=== PATIENT | male | born 1945 | race African-American/Black ===

== ENCOUNTER 2021-05-05 15:56 | Emergency (ER) | payer MEDICARE ==
[~2021-05-05 15:56] MED LIST: Iopamidol-370 76% 500 ML 1 ML ONE
[2021-05-05 16:41] LABS: #Basophils 0.1 thou/uL (0.0-0.2); #Lymphocytes 1.6 thou/uL (1.20-3.40); %Basophils 0.5 % (0.0-1.0); %Eosinophils 0.4 % (0.0-10.0); %Lymphocytes 16.5 % (21.0-51.0); %Monocytes 10.3 % (0.0-10.0); %Neutrophils 72.3 % (42.0-75.0); Hemoglobin 13.1 g/dL (14.0-18.0); Mean Corpuscular HGB CONC 31.7 g/dL (32.0-36.0); Mean Corpuscular Hemoglobin 29.9 pg (27.0-31.0); Mean Corpuscular Volume 94.2 fL (78.0-98.0); Mean Platelet Volume 8.5 fL (7.4-10.4); Platelet Count 244 thou/uL (130-400); RBC Distribution Width 11.9 % (11.5-14.5); Red Blood Cell (RBC) Count 4.37 mill/uL (4.70-6.10); White Blood Cell (WBC) Count 9.7 thou/uL (4.8-10.8)
[2021-05-05 16:59] LABS: ALT (SGPT) 66 U/L (8-55); AST (SGOT) 71 U/L (5-34); Albumin 3.6 g/dL (3.4-4.8); Alkaline Phosphatase 135 U/L (40-110); Anion Gap 14 mmol/L (10-20); BUN (Urea Nitrogen) 30 mg/dL (8.4-25.7); Bilirubin, Total 0.5 mg/dL (0.2-1.2); Calc. Creatinine Clearance 0 mL/min (70-130); Carbon Dioxide 24 mmol/L (23-31); Chloride 107 mmol/L (98-107); Globulin 4.6 g/dL (2.4-3.5); Glucose 127 mg/dL (83-110); Potassium 4.2 mmol/L (3.5-5.1); Protein, Total 8.2 g/dL (5.8-8.1); Sodium 141 mmol/L (136-145)
[2021-05-05 17:32] LABS: CK (CPK) 153 U/L (30-200); Lipase 48 U/L (8-78)
[2021-05-05 18:13] LABS: Bilirubin Negative (Negative); Blood, Urine Negative (Negative); Clarity Turbid (Clear); Glucose, Urine (Dipstick) Normal (Negative); Ketone, Urine Negative (Negative); Leukocyte Negative Leu/uL (Negative); Nitrite Negative (Negative); Protein, Urine (Dipstick) Negative (Neg-Trace); Specific Gravity, Urine 1.019 (1.002-1.036); Urobilinogen Normal mg/dL (Less than 2); pH, Urine 5.5 (5.0-9.0)
[2021-05-05 18:43] LABS: SARS-CoV-2 NAA Rapid Test DETECTED (NotDetected)
== END 2021-05-05 19:45 | disposition home or self-care (01) ==
LOC: ERS 15:56
DX: U07.1 COVID-19 (principal); I10 Essential (primary) hypertension; E78.5 Hyperlipidemia, unspecified; Z79.899 Other long term (current) drug therapy
CPT/HCPCS: 71045; 74177; 80053; 81003; 82550; 83690; 84484; 85025; 93005; U0002; 36415; Q9967

== ENCOUNTER 2022-04-15 09:06 | Outpatient (CLI) | payer MEDICARE | END 2022-04-15 09:07 | disposition home or self-care (01) | LOC: RAD 09:06 | PROVIDERS: ATTEND Internal Medicine Critical Care Medicine | DX: R06.00 Dyspnea, unspecified (principal) | CPT/HCPCS: 71046 ==

== ENCOUNTER 2023-05-11 12:56 | Outpatient (CLI) | payer MEDICARE | END 2023-05-11 12:57 | disposition home or self-care (01) | LOC: BICRAD 12:56 | PROVIDERS: ATTEND Nurse Practitioner Family | DX: M54.2 Cervicalgia (principal); M47.812 Spondylosis without myelopathy or radiculopathy, cervical region | CPT/HCPCS: 72040 ==

== ENCOUNTER 2023-09-21 20:09 | Inpatient (IN) | payer MEDICARE ==
[~2023-09-21 20:09] MED LIST changes: -Iopamidol-370 76% 500 ML 1 ML ONE; +Iopamidol-370 76% 500 ML MDV (1 ML CHARGE) ONE
[2023-09-21 20:48] LABS: #Monocytes 0.4 thou/uL (0.11-0.59); #Neutrophils 10.4 thou/uL (1.40-6.50); %Basophils 0.3 % (0.0-1.0); %Eosinophils 0.3 % (0.0-10.0); %Lymphocytes 7.1 % (21.0-51.0); %Monocytes 3.5 % (0.0-10.0); %Neutrophils 88.4 % (42.0-75.0); Hematocrit 41.7 % (42.0-52.0); Hemoglobin 13.6 g/dL (14.0-18.0); Mean Corpuscular HGB CONC 32.6 g/dL (32.0-36.0); Mean Corpuscular Hemoglobin 30.4 pg (27.0-31.0); Mean Corpuscular Volume 93.1 fl (78.0-98.0); Mean Platelet Volume 10.3 fL (7.4-10.4); Platelet Count 425 10x3/uL (130-400); Red Blood Cell (RBC) Count 4.48 mill/uL (4.70-6.10); White Blood Cell (WBC) Count 11.8 10x3/uL (4.8-10.8)
[2023-09-21 21:06] LABS: Actual Bicarbonate (HCO3a) 26.6 mEq/L (22-28); Analyzer IN Cardio ER; CO2 Tension 46.2 mmHg (35.0-45.0); Carboxyhemoglobin (COHb) 0.6 gm% (0.0-3.0); Hematocrit-ABG 37 % (42.0-52.0); Hemoglobin (Hb) 12.7 g/dL (14.0-18.0); Potassium - ABG Lab 4.82 mmol/L (3.70-5.30); pH, Arterial 7.378 (7.35-7.45)
[2023-09-21 21:08] LABS: Puncture Site LRA
[2023-09-21 21:12] LABS: ALT (SGPT) 21 U/L (8-55); AST (SGOT) 30 U/L (5-34); Albumin 3.4 g/dL (3.4-4.8); Alkaline Phosphatase 115 U/L (40-110); Anion Gap 14 mmol/L (10-20); BUN (Urea Nitrogen) 35 mg/dL (8.4-25.7); Bilirubin, Total 0.4 mg/dL (0.2-1.2); Calc. Creatinine Clearance 0 mL/min (70-130); Calcium 9.5 mg/dL (7.8-10.44); Carbon Dioxide 25 mmol/L (23-31); Chloride 103 mmol/L (98-107); Estimated GFR 66; Globulin 5.9 g/dL (2.4-3.5); Glucose 124 mg/dL (83-110); Lipase 13 U/L (8-78); Potassium 5.6 mmol/L (3.5-5.1); Protein, Total 9.3 g/dL (5.8-8.1); Sodium 136 mmol/L (136-145)
[2023-09-21 21:13] LABS: Bilirubin Negative (Negative); Blood, Urine Negative (Negative); CAUTI Indications for Culture Alt mental st,lethar; Clarity Turbid (Clear); Glucose, Urine (Dipstick) Normal (Negative); Ketone, Urine Negative (Negative); Leukocyte 500 Leu/uL (Negative); Nitrite Negative (Negative); Protein, Urine (Dipstick) Negative (Neg-Trace); RBC/HPF 0-3 HPF (0-3); Specific Gravity, Urine 1.017 (1.002-1.036); Squamous Epithelial 0-3 HPF (0-3); Urobilinogen Normal mg/dL (Less than 2); WBC/HPF Greater than 50 HPF (0-3)
[2023-09-21 21:22] LABS: Troponin I Less than 0.010 ng/mL (< 0.028)
[2023-09-21 21:26] LABS: Bacteria/HPF 1+ HPF (None Seen)
[2023-09-21 21:27] LABS: Urine Culture Reflex Yes Yes
[2023-09-21 21:51] LABS: Influenza A by NAA Not Detected (NotDetected); Influenza B by NAA Not Detected (NotDetected); SARS-CoV-2 NAA Rapid Test Not Detected (NotDetected)
[2023-09-21] MEDS ORDERED: Dexamethasone 10 MG/ML VIAL ONE (21:56)
[2023-09-21] MEDS ORDERED: Albuterol 2.5 MG (3 mL) NEB ONE (22:03)
[2023-09-21] MEDS ORDERED: Ipratropium/Albuterol 3 ML NEB ONE (22:05)
[2023-09-21] MEDS ORDERED: Ondansetron ODT 4 MG TAB SL PRN (22:30)
[2023-09-21] MEDS ORDERED: Ondansetron PF 4 MG/2 ML Vial IVP PRN (22:30)
[2023-09-21] MEDS ORDERED: Magnesium 2 GM/50 ML BAG (IN WATER) ONE (22:51)
[2023-09-21 23:06] LABS: Potassium 5.3 mmol/L (3.5-5.1)
[2023-09-21] MEDS ORDERED: Sodium Chloride 0.9% 100 ML ONE (23:55)
[2023-09-21] MEDS ORDERED: cefTRIAXone (ROCEPHIN) 1 GM VIAL ONE (23:55)
[2023-09-21] MEDS: cefTRIAXone\\ROCEPHIN 1 GM in Sodium Chloride 0.9% 100 ML IVPB SCH (23:59)
[2023-09-22] MEDS ORDERED: Insulin Regular 300 UNITS/3 ML VIAL ONE (00:03)
[2023-09-22] MEDS ORDERED: LevoFLOXacin 750 mg/D5W 150 ml Premix Bag ONE (00:16)
[2023-09-22] MEDS: Insulin Regular 300 UNITS/3 ML VIAL IVP SCH (00:19)
[2023-09-22] MEDS: Dextrose 50% Abboject 50 ML SYRINGE SLOW IVP SCH (00:19)
[2023-09-22] MEDS: LevoFLOXacin 750 mg/D5W 750 MG in Premix 1 BAG IVPB SCH (00:22)
[2023-09-22] MEDS ORDERED: hydrALAZINE 20 MG/ML VIAL SLOW IVP PRN (01:37)
[2023-09-22] MEDS ORDERED: Ipratropium/Albuterol 3 ML NEB NEB PRN (01:54)
[2023-09-22 06:13] LABS: #Monocytes 0.1 thou/uL (0.11-0.59); #Neutrophils 6.4 thou/uL (1.40-6.50); %Basophils 0.1 % (0.0-1.0); %Lymphocytes 5.4 % (21.0-51.0); %Monocytes 1.3 % (0.0-10.0); %Neutrophils 93.1 % (42.0-75.0); Hematocrit 36.5 % (42.0-52.0); Hemoglobin 11.3 g/dL (14.0-18.0); Mean Corpuscular Hemoglobin 29.7 pg (27.0-31.0); Mean Corpuscular Volume 95.8 fl (78.0-98.0); Mean Platelet Volume 10.3 fL (7.4-10.4); Platelet Count 366 10x3/uL (130-400); Red Blood Cell (RBC) Count 3.81 mill/uL (4.70-6.10); White Blood Cell (WBC) Count 6.9 10x3/uL (4.8-10.8)
[2023-09-22 06:41] LABS: ALT (SGPT) 19 U/L (8-55); AST (SGOT) 23 U/L (5-34); Alkaline Phosphatase 97 U/L (40-110); Anion Gap 14 mmol/L (10-20); BUN (Urea Nitrogen) 37 mg/dL (8.4-25.7); Bilirubin, Total 0.2 mg/dL (0.2-1.2); Calc. Creatinine Clearance 39 mL/min (70-130); Carbon Dioxide 22 mmol/L (23-31); Chloride 103 mmol/L (98-107); Estimated GFR 65; Globulin 5.2 g/dL (2.4-3.5); Glucose 125 mg/dL (83-110); Potassium 4.6 mmol/L (3.5-5.1); Protein, Total 8.2 g/dL (5.8-8.1); Sodium 134 mmol/L (136-145)
[2023-09-22] MEDS: Ipratropium/Albuterol 3 ML NEB NEB SCH (06:51)
[2023-09-22] MEDS ORDERED: Dexamethasone 10 MG/ML VIAL SLOW IVP SCH (09:00)
[2023-09-22] MEDS: Enoxaparin 40 MG (0.4 mL) SYRINGE SC SCH (09:05)
[2023-09-22] MEDS: Multivit, Therapeutic 1 TAB PO SCH (09:05)
[2023-09-22] MEDS: Dicyclomine 10 MG CAP PO SCH (09:05)
[2023-09-22] MEDS: Doxycycline 100 MG in Sodium Chloride 0.9% 100 ML IVPB SCH (09:06)
[2023-09-22] MEDS: methylPREDNISolone Sod Succ 40 MG VIAL IVP SCH ×2 (09:06→16:01)
[2023-09-22 10:44] LABS: Anion Gap 13 mmol/L (10-20); BUN (Urea Nitrogen) 39 mg/dL (8.4-25.7); Calc. Creatinine Clearance 40 mL/min (70-130); Calcium 9.1 mg/dL (7.8-10.44); Carbon Dioxide 25 mmol/L (23-31); Chloride 103 mmol/L (98-107); Estimated GFR 66; Glucose 142 mg/dL (83-110); Potassium 5.1 mmol/L (3.5-5.1); Sodium 136 mmol/L (136-145)
[2023-09-22] MEDS: Cefepime 1 GM in Sodium Chloride 0.9% 100 ML IVPB SCH (15:55)
[2023-09-22] MEDS: Acetaminophen 325 MG TAB PO PRN (15:56)
[2023-09-22 16:51] LABS: Legionella Urinary Ag Negative (Negative); Strep pneumo Urine Ag NEGATIVE (NEGATIVE)
[2023-09-22] MEDS: Atorvastatin Calcium 20 MG TAB PO SCH (21:00)
[2023-09-22] MEDS: Ramipril 5 MG CAP PO SCH (21:00)
[2023-09-22] MEDS: Amitriptyline HCl 25 MG TAB PO SCH (21:00)
[2023-09-22] MEDS ORDERED: Polyethylene Glycol 3350 17 GM Packet PO PRN (22:16)
[2023-09-22] MEDS ORDERED: Senokot S 8.6-50 MG TAB PO PRN (22:16)
[2023-09-22] MEDS ORDERED: Docusate 100 MG CAP PO PRN (22:16)
[2023-09-23] MEDS: Methyl Salicylate/Menthol 85 GM TUBE TOP PRN (04:42)
[2023-09-23 06:21] LABS: #Monocytes 0.5 thou/uL (0.11-0.59); #Neutrophils 21.9 thou/uL (1.40-6.50); %Basophils 0.1 % (0.0-1.0); %Lymphocytes 4.1 % (21.0-51.0); %Monocytes 2.3 % (0.0-10.0); %Neutrophils 92.9 % (42.0-75.0); Hematocrit 36.4 % (42.0-52.0); Hemoglobin 11.3 g/dL (14.0-18.0); Mean Corpuscular Hemoglobin 29.9 pg (27.0-31.0); Mean Corpuscular Volume 96.3 fl (78.0-98.0); Mean Platelet Volume 10.5 fL (7.4-10.4); Platelet Count 307 10x3/uL (130-400); RBC Distribution Width 14.5 % (11.5-14.5); Red Blood Cell (RBC) Count 3.78 mill/uL (4.70-6.10); White Blood Cell (WBC) Count 23.6 10x3/uL (4.8-10.8)
[2023-09-23 06:45] LABS: Anion Gap 13 mmol/L (10-20); BUN (Urea Nitrogen) 45 mg/dL (8.4-25.7); CRP (Inflammatory) Less than 0.50 mg/dL (= or < 0.5); Calc. Creatinine Clearance 36 mL/min (70-130); Calcium 8.8 mg/dL (7.8-10.44); Carbon Dioxide 23 mmol/L (23-31); Chloride 104 mmol/L (98-107); Estimated GFR 59; Glucose 100 mg/dL (83-110); Sodium 134 mmol/L (136-145)
[2023-09-23 06:48] LABS: Critical Call Chemistry ICU.SCT@0648; Potassium 6.1 mmol/L (3.5-5.1)
[2023-09-23] MEDS: HYDROcodone/Acetaminophen 5/325 mg Tablet PO PRN (07:41)
[2023-09-23 07:59] LABS: #Monocytes 0.5 thou/uL (0.11-0.59); #Neutrophils 22.7 thou/uL (1.40-6.50); %Basophils 0.1 % (0.0-1.0); %Lymphocytes 3.6 % (21.0-51.0); %Monocytes 1.9 % (0.0-10.0); %Neutrophils 93.8 % (42.0-75.0); Hematocrit 36.8 % (42.0-52.0); Hemoglobin 11.5 g/dL (14.0-18.0); Mean Corpuscular HGB CONC 31.3 g/dL (32.0-36.0); Mean Corpuscular Hemoglobin 30.4 pg (27.0-31.0); Mean Corpuscular Volume 97.4 fl (78.0-98.0); Mean Platelet Volume 10.3 fL (7.4-10.4); Platelet Count 332 10x3/uL (130-400); RBC Distribution Width 14.4 % (11.5-14.5); Red Blood Cell (RBC) Count 3.78 mill/uL (4.70-6.10); White Blood Cell (WBC) Count 24.2 10x3/uL (4.8-10.8)
[2023-09-23 08:16] LABS: Anion Gap 14 mmol/L (10-20); BUN (Urea Nitrogen) 44 mg/dL (8.4-25.7); Calc. Creatinine Clearance 38 mL/min (70-130); Calcium 8.8 mg/dL (7.8-10.44); Carbon Dioxide 21 mmol/L (23-31); Chloride 106 mmol/L (98-107); Estimated GFR 60; Glucose 114 mg/dL (83-110); Sodium 134 mmol/L (136-145)
[2023-09-23 08:31] LABS: Critical Call Chemistry NUR.KD5 AT 0830; Potassium 6.5 mmol/L (3.5-5.1)
[2023-09-23 09:06] VITALS: BMI 16.1
[2023-09-23] MEDS: Calcium Gluc 4.6 MEQ/10 ML (100 MG/ML) SLOW IVP SCH (09:15)
[2023-09-23] MEDS: Dextrose 50% Abboject 50 ML SYRINGE SLOW IVP SCH (09:15)
[2023-09-23] MEDS: Insulin Regular 300 UNITS/3 ML VIAL IVP SCH (09:15)
[2023-09-23] MEDS: Sodium Chloride 0.9% 1,000 ML IV SCH (09:16)
[2023-09-23] MEDS: Sodium Polystyrene Sulfonate 15 GM (60 mL) BOT PO SCH (12:18)
[2023-09-23 18:34] LABS: Potassium 4.9 mmol/L (3.5-5.1)
[2023-09-24 04:48] LABS: Anion Gap 12 mmol/L (10-20); BUN (Urea Nitrogen) 43 mg/dL (8.4-25.7); Calc. Creatinine Clearance 48 mL/min (70-130); Calcium 8.2 mg/dL (7.8-10.44); Carbon Dioxide 23 mmol/L (23-31); Chloride 105 mmol/L (98-107); Estimated GFR 78; Glucose 68 mg/dL (83-110); Potassium 4.5 mmol/L (3.5-5.1); Sodium 135 mmol/L (136-145)
[2023-09-24 09:30] LABS: Free T4 (Free Thyroxine) 0.94 ng/dL (0.70-1.48); Thyroid Stimulating Hormone 0.2769 uIU/mL (0.35-4.94)
[2023-09-24] MEDS: Enoxaparin 30 MG (0.3 mL) SYRINGE SC SCH (09:39)
[2023-09-25 05:52] LABS: Anion Gap 10 mmol/L (10-20); BUN (Urea Nitrogen) 35 mg/dL (8.4-25.7); Calc. Creatinine Clearance 52 mL/min (70-130); Calcium 8.4 mg/dL (7.8-10.44); Carbon Dioxide 25 mmol/L (23-31); Chloride 107 mmol/L (98-107); Estimated GFR 87; Glucose 81 mg/dL (83-110); Potassium 4.4 mmol/L (3.5-5.1); Sodium 138 mmol/L (136-145)
[2023-09-25 17:13] LABS: A/G Ratio 0.5 (0.7-1.7); Albumin 2.9 g/dL (2.9-4.4); Alpha 1 0.3 g/dL (0.0-0.4); Beta 1.3 g/dL (0.7-1.3); Gamma 2.8 g/dL (0.4-1.8); Globulin, Total 5.4 g/dL (2.2-3.9); M-Spike Not Observed g/dL (Not Observed); Protein Electrophoresis Intrp Note: (.)
[2023-09-26 04:42] LABS: #Eosinphils 0.2 thou/uL (0.0-0.7); #Monocytes 1.2 thou/uL (0.11-0.59); #Neutrophils 6.1 thou/uL (1.40-6.50); %Basophils 0.1 % (0.0-1.0); %Eosinophils 2.3 % (0.0-10.0); %Lymphocytes 21.3 % (21.0-51.0); %Monocytes 12.6 % (0.0-10.0); %Neutrophils 63.5 % (42.0-75.0); Hematocrit 32.4 % (42.0-52.0); Mean Corpuscular HGB CONC 30.9 g/dL (32.0-36.0); Mean Corpuscular Volume 97.3 fl (78.0-98.0); Mean Platelet Volume 10.8 fL (7.4-10.4); Platelet Count 237 10x3/uL (130-400); RBC Distribution Width 14.4 % (11.5-14.5); Red Blood Cell (RBC) Count 3.33 mill/uL (4.70-6.10); White Blood Cell (WBC) Count 9.6 10x3/uL (4.8-10.8)
[2023-09-26 05:01] LABS: Anion Gap 12 mmol/L (10-20); BUN (Urea Nitrogen) 29 mg/dL (8.4-25.7); Calc. Creatinine Clearance 52 mL/min (70-130); Calcium 8.1 mg/dL (7.8-10.44); Carbon Dioxide 23 mmol/L (23-31); Chloride 105 mmol/L (98-107); Estimated GFR 88; Glucose 95 mg/dL (83-110); Potassium 4.3 mmol/L (3.5-5.1); Sodium 136 mmol/L (136-145)
[2023-09-26] MEDS: Doxycycline 100 MG CAP PO SCH (19:33)
[2023-09-27 07:26] LABS: Anion Gap 11 mmol/L (10-20); BUN (Urea Nitrogen) 25 mg/dL (8.4-25.7); Calc. Creatinine Clearance 64 mL/min (70-130); Calcium 8.3 mg/dL (7.8-10.44); Carbon Dioxide 24 mmol/L (23-31); Chloride 105 mmol/L (98-107); Estimated GFR 92; Glucose 66 mg/dL (83-110); Potassium 4.6 mmol/L (3.5-5.1); Sodium 135 mmol/L (136-145)
[2023-09-28 07:57] LABS: #Eosinphils 0.2 thou/uL (0.0-0.7); #Monocytes 0.7 thou/uL (0.11-0.59); #Neutrophils 5.8 thou/uL (1.40-6.50); %Basophils 0.1 % (0.0-1.0); %Eosinophils 2.3 % (0.0-10.0); %Lymphocytes 20.1 % (21.0-51.0); %Monocytes 7.9 % (0.0-10.0); %Neutrophils 69.4 % (42.0-75.0); Hematocrit 38.2 % (42.0-52.0); Hemoglobin 11.8 g/dL (14.0-18.0); Mean Corpuscular HGB CONC 30.9 g/dL (32.0-36.0); Mean Corpuscular Hemoglobin 30.2 pg (27.0-31.0); Mean Corpuscular Volume 97.7 fl (78.0-98.0); Mean Platelet Volume 11.7 fL (7.4-10.4); Platelet Count 206 10x3/uL (130-400); RBC Distribution Width 14.1 % (11.5-14.5); Red Blood Cell (RBC) Count 3.91 mill/uL (4.70-6.10); White Blood Cell (WBC) Count 8.3 10x3/uL (4.8-10.8)
[2023-09-28 08:16] LABS: Anion Gap 10 mmol/L (10-20); BUN (Urea Nitrogen) 22 mg/dL (8.4-25.7); Calc. Creatinine Clearance 59 mL/min (70-130); Calcium 8.9 mg/dL (7.8-10.44); Carbon Dioxide 30 mmol/L (23-31); Chloride 101 mmol/L (98-107); Estimated GFR 90; Glucose 82 mg/dL (83-110); Potassium 4.4 mmol/L (3.5-5.1); Sodium 137 mmol/L (136-145)
[2023-09-28] MEDS: Polyethylene Glycol 3350 17 GM Packet PO SCH (14:58)
[2023-09-28] MEDS: Ipratropium/Albuterol 3 ML NEB NEB SCH (20:20)
[2023-09-28] MEDS: Senokot S 8.6-50 MG TAB PO SCH (20:37)
[2023-09-28] MEDS: Amitriptyline HCl 25 MG TAB PO SCH (20:38)
[2023-09-29] MEDS: Polyethylene Glycol 3350 17 GM Packet PO PRN (11:40)
[2023-09-30] MEDS: Fleet Saline Enema 133 ML BOT PR SCH (16:04)
[2023-09-30] MEDS: Preparation H Ointment 28 GM TUBE TOP PRN (23:26)
[2023-10-01] MEDS: Enoxaparin 40 MG (0.4 mL) SYRINGE SC SCH (10:37)
[2023-10-01 17:10] VITALS: BP 116/70; TEMP 97.5
== END 2023-10-01 19:40 | disposition home health service (06) | DRG 871 ==
LOC: ERS 20:09 → ERHOLD 22:10 → IMCU/EMU 09-22 01:54 → MSONC 09-26 14:17
PROVIDERS: ADMIT Internal Medicine; ATTEND Internal Medicine
PROC: 4A033R1 Measurement of Arterial Saturation, Peripheral, Percutaneous Approach (ICD-10-PCS; principal; 2023-09-21)
PROC: 3E03329 Introduction of Other Anti-infective into Peripheral Vein, Percutaneous Approach (ICD-10-PCS; 2023-09-21)
DX: A41.9 Sepsis, unspecified organism (principal); E43 Unspecified severe protein-calorie malnutrition; G93.41 Metabolic encephalopathy; J96.01 Acute respiratory failure with hypoxia; N39.0 Urinary tract infection, site not specified; L03.116 Cellulitis of left lower limb; I10 Essential (primary) hypertension; K21.9 Gastro-esophageal reflux disease without esophagitis; F32.A Depression, unspecified; E87.5 Hyperkalemia; D64.9 Anemia, unspecified; K58.9 Irritable bowel syndrome, unspecified; J47.9 Bronchiectasis, uncomplicated; J84.10 Pulmonary fibrosis, unspecified; E03.9 Hypothyroidism, unspecified; R63.4 Abnormal weight loss; R33.9 Retention of urine, unspecified; Z87.891 Personal history of nicotine dependence; Z11.52 Encounter for screening for COVID-19; Z98.890 Other specified postprocedural states; Z79.899 Other long term (current) drug therapy
CPT/HCPCS: 36415; 36416; 36600; 70450; 71045; 71275; 74176; 76536; 80048; 80053; 81001; 82533; 82805; 83605; 83690; 83880; 84132; 84145; 84155; 84165; 84238; 84439; 84443; 84481; 84484; 85025; 86140; 87040; 87086; 87449; 87899; 93005; 93306; 93923; 94640; 94660; 96360; 96365; 96375; J0612; J0692; J0696; J1100; J1650; J1815; J1956; J2920; J3475; J3490; J7050; J7611; J7620; J7999; Q9967

== ENCOUNTER 2023-10-23 19:14 | Inpatient (IN) | payer OTHER ==
[2023-10-23] MEDS ORDERED: Morphine 2 MG/ML VIAL SLOW IVP PRN (19:36)
[2023-10-23] MEDS ORDERED: LORazepam 2 MG/ML SYR.(CARPUJECT) IVP PRN (19:38)
[2023-10-23] MEDS: Morphine 2 MG/ML VIAL SLOW IVP SCH (21:09)
[2023-10-23] MEDS: LORazepam 2 MG/ML SYR.(CARPUJECT) IVP SCH (21:09)
[2023-10-23] MEDS: Scopolamine 1 mg/72 hour Patch TOP SCH (21:21)
[2023-10-24] MEDS ORDERED: Lorazepam 2 MG/ML VIAL SLOW IVP PRN (00:59)
[2023-10-24] MEDS: Lorazepam 2 MG/ML VIAL SLOW IVP SCH (03:06)
[2023-10-24 13:11] VITALS: BMI 17.1
[2023-10-24 21:01] VITALS: TEMP 97.6
[2023-10-26] MEDS: fentaNYL 25 mcg Patch TD SCH (12:24)
[2023-10-26] MEDS: Morphine 2 MG/ML VIAL SLOW IVP PRN (20:34)
[2023-10-27 07:32] VITALS: BP 120/75
== END 2023-10-27 17:51 | DRG 951 ==
LOC: EEVIPCON 19:14 → CCU 19:14 → T4-B 23:40
PROVIDERS: ADMIT Family Medicine; ATTEND Family Medicine
DX: Z51.5 Encounter for palliative care (principal); J96.20 Acute and chronic respiratory failure, unspecified whether with hypoxia or hypercapnia; E44.0 Moderate protein-calorie malnutrition; Z68.1 Body mass index [BMI] 19.9 or less, adult; J84.10 Pulmonary fibrosis, unspecified; Z79.899 Other long term (current) drug therapy; K21.9 Gastro-esophageal reflux disease without esophagitis; I10 Essential (primary) hypertension
CPT/HCPCS: J2060; J2272